=== PATIENT | female | born 1950 | race Caucasian/White ===

== ENCOUNTER 2016-10-28 21:27 | Inpatient (IN) | payer MEDICARE, OTHER ==
--- NOTE | 2016-10-28 21:54 | ED Physician Chart ---
Chief Complaint/HPI - Patient Information Date Seen:: 10/28/16 Time Seen:: 21:45 Chief Complaint:: Aggressive behavior for at least 4 months. History of Present Illness:: Brought in by caregiver Ms. Thu Baez because pt has been noticed to have increased aggressive behavior for about 4 months. Pt has been evaluated by social work nurse in the past and is in the process to be considered for placement in a care home. Pt has been followed by PCP Dr. Dodie Crenshaw. Pt currently feels comfortable without any bodily pain. Pt has been noticed at times to throw things around. Pt at times urinates and defecates anywhere in the home. She also uses foul language and becomes hostile regularly. Pt now appears to be calm and comfortable. Allergies:: NKA Vitals:: see Nurse Note. Historian:: Patient, Other (caregiver Ms. Thu Baez) Family MD/PCP:: Dr. Dodie Crenshaw. LMP:: Postmenopausal. Review:: Nurse's Note Reviewed Review of Systems - Review of Systems General/Constitutional: Other (Pt does not cooperate for ROS.) Past Medical History - Past Medical History Past Medical History: Dementia Family History: Other (Pt does not cooperate to provide info on FHx.) Social History: Non Smoker, No Alcohol, No Drug Use, Single, Other (lives with caregiver Ms. Baez.) Employment:: Retired. Surgical History: other (Bilateral knee surgeries about 2 years.) Psychiatricy History: Depression, Dementia Medication: Reviewed Family Medical History - Family Member Mother History Unknown: Yes Physical Exam - Physical Examination General/Constitutional: Awake, Alert, No distress, Non-toxic appearing, Ambulatory Other Gen/Cons comments:: WD slightly cachectic female in NAD. Pt speaks clearly and ambulates without difficulty. Pt is not fully cooperative. Head: Atraumatic Eyes: Lids, conjuctiva normal, PERRL, EOMI Skin: No rash, No lymphadenopathy ENMT: Oropharynx nl Other ENMT comments:: mucous membrane is slightly dry. Neck: Nontender, Full ROM w/o pain, No JVD, No nuchal rigidity, No mass, No stridor Respiratory: Nl effort/Exclusion, Clear to Auscultation, No Wheeze/Rhonchi/Rales Cardio Vascular: RRR, No murmur, gallop, rubs GI: No tenderness/rebounding/guarding, No organomegaly, Normal BS's, Nondistended, No mass/bruits Other GI comments:: Abdomen is soft. : No CVA tenderness Extremities: No edema Other Neuro/Psych comments:: Alert and knows her name. Spontaneous movements noticed in all 4 extremities. Pt does not cooperate for full neurological exam. Labs/Radiology/EKG Results - Lab Results Results: Laboratory Tests 10/28/16 10/28/16 10/28/16 22:00 22:00 22:00 WBC 6.0 RBC 4.04 Hgb 13.0 Hct 38.4 MCV 95.0 MCH 32.3 H MCHC Differential 33.9 RDW 11.9 Plt Count 190 MPV 11.1 Neutrophils % 54.8 Lymphocytes % 36.4 Monocytes % 7.1 Eosinophils % 1.2 Basophils % 0.5 Sodium 137 Potassium 3.8 Chloride 102 Carbon Dioxide 31.3 H Anion Gap 7.5 BUN 33 H Creatinine 0.8 Est GFR ( Amer) > 60.0 Est GFR (Non-Af Amer) > 60.0 BUN/Creatinine Ratio 41.3 Glucose 84 Calcium 9.6 Total Bilirubin 0.5 AST 32 ALT 37 Alkaline Phosphatase 48 Total Protein 6.4 Albumin 3.7 Globulin 2.7 Albumin/Globulin Ratio 1.4 Urine Source Urine Color Urine Clarity Urine pH Ur Specific [place] Urine Protein Urine Glucose (UA) Urine Ketones Urine Blood Urine Nitrate Urine Bilirubin Urine Urobilinogen Ur Leukocyte Esterase Urine RBC Urine WBC Ur Epithelial Cells Urine Bacteria Valproic Acid 82.4 10/28/16 22:15 WBC RBC Hgb Hct MCV MCH MCHC Differential RDW Plt Count MPV Neutrophils % Lymphocytes % Monocytes % Eosinophils % Basophils % Sodium Potassium Chloride Carbon Dioxide Anion Gap BUN Creatinine Est GFR ( Amer) Est GFR (Non-Af Amer) BUN/Creatinine Ratio Glucose Calcium Total Bilirubin AST ALT Alkaline Phosphatase Total Protein Albumin Globulin Albumin/Globulin Ratio Urine Source CLEAN C Urine Color YELLOW Urine Clarity CLEAR Urine pH 5.5 Ur Specific [place] 1.025 Urine Protein NEGATIVE Urine Glucose (UA) NEGATIVE Urine Ketones 15 H Urine Blood NEGATIVE Urine Nitrate NEGATIVE Urine Bilirubin NEGATIVE Urine Urobilinogen 1.0 Ur Leukocyte Esterase NEGATIVE Urine RBC 0-2 Urine WBC 0-2 Ur Epithelial Cells FEW Urine Bacteria FEW Valproic Acid ED Septic Shock - . Is Septic Shock (SBP<90, OR Lactate>4 mmol\L) present?: No Reassessment (Disposition) - Reassessment Reassessment:: 2309 Pt remains stable. No new findings. Remaining lab results just became available. 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 Management plan has been discussed. Dr. Crenshaw is to be contacted. 2314 Case was discussed with Dr. Gayathri Crenshaw, who covers for Dr. Dodie Crenshaw, with pertinent H & P and lab findings reviewed. Pt is to be admitted to [facility] under his care. Reassessment Condition:: Improved - Diagnosis Diagnosis:: Dehydration. Dementia with aggressive behavior. - Patient Disposition Admitted to:: Med/Surg Admitting Medical Physician:: Teofilo Crenshaw Time:: 23:20 Condition at Disposition:: Stable, Improved ED Discharge Plan - Patient Disposition Admit/Discharge/Transfer: Acute Care w/in this hosp
[2016-10-28 22:18] LABS: % BASOPHILS 0.5 % (0.0-2.0); % EOSINOPHILS 1.2 % (0.0-5.0); % LYMPHOCYTES 36.4 % (20.0-50.0); % MONOCYTES 7.1 % (2.0-10.0); % NEUTROPHILS 54.8 % (40.0-80.0); HEMATOCRIT 38.4 % (35.0-45.0); MEAN CORPUSCULAR HEMOGLOBIN 32.3 pg (27.0-31.0); MEAN CORPUSCULAR HGB CONC 33.9 pg (28.0-36.0); MEAN PLATELET VOLUME 11.1 fl; NEUTROPHILE ABSOLUTE 3.3 Th/cmm (1.8-8.0); PLATELET COUNT 190 Th/cmm (150-400); RED BLOOD COUNT 4.04 Mil/cmm (3.80-5.20); RED CELL DISTRIBUTION WIDTH 11.9 % (11.5-20.0)
[2016-10-28 22:29] LABS: ALB/GLOB RATIO 1.4 (1.0-1.8); ALKALINE PHOSPHATASE 48 U/L (34-104); ANION GAP 7.5 (7.0-16.0); BILIRUBIN,TOTAL 0.5 mg/dL (0.3-1.0); BUN - UREA NITROGEN 33 mg/dL (7-25); BUN/CREATININE RATIO 41.3; CALCIUM SERUM 9.6 mg/dL (8.6-10.3); CARBON DIOXIDE 31.3 mEq/L (21.0-31.0); CHLORIDE 102 mEq/L (98-107); CREATININE - SERUM 0.8 mg/dL (0.6-1.2); GLUCOSE 84 mg/dL (70-105); POTASSIUM SERUM 3.8 mEq/L (3.5-5.1); SGOT 32 U/L (13-39); SGPT/ALT 37 U/L (7-52); SODIUM SERUM 137 mEq/L (136-145)
[2016-10-28] MEDS ORDERED: D5-0.45NS 1,000 ML IV ONE (22:55)
[2016-10-28 23:03] LABS: URINE BILIRUBIN NEGATIVE (NEGATIVE); URINE BLOOD NEGATIVE (NEGATIVE); URINE COLOR YELLOW; URINE GLUCOSE (UA) NEGATIVE (NEGATIVE); URINE KETONE 15 mg/dL (NEGATIVE); URINE PH 5.5
[2016-10-28 23:04] LABS: URINE BACTERIA FEW /hpf (NONE SEEN); URINE EPITHELIAL CELLS FEW /lpf (FEW); URINE PROTEIN NEGATIVE (NEGATIVE); URINE RBC 0-2 /hpf (0-5); URINE WBC 0-2 /hpf (0-5)
--- NOTE | 2016-10-29 03:05 | Admit Criteria Form ---
Admit Criteria Forms - Admit Criteria Diagnosis: DEHYDRATION Clinical Indications for Admission to Inpatient Care (Place 'X' for any and all applicable criteria): Admission is indicated for ANY ONE of the following (1)(2)(3)(4)(5): [X ]I. Inpatient admission required rather than observation care (see Dehydration: Observation Care guideline as appropriate) because of ANY ONE of the following: [ ]a) Vomiting that is severe or persistent [ ]b) Severe electrolyte abnormalities requiring inpatient care [ ]c) Hemodynamic instability [ ]d) IV fluid to replace significant ongoing losses (greater than 3 L/m2 per day (10) (11) [ ]e) Parenteral nutrition regimen that must be implemented on inpatient basis [ X]f) Other condition,treatment or monitoring requiring inpatient admission [ ]II. Serious cause for dehydration requiring acute hospitalization (eg, bowel obstruction, increased intracranial pressure, infectious cause) Extended stay beyond goal length of stay may be needed for(1)(3 )(4)(17): [ ]a) Chronic severe dehydration [ ]b) Persistent vital sign changes, severe electrolyte imbalance, or diagnosed cause of dehydration that requires continued hospitalization (eg, bowel obstruction, increased intracranial pressure) [ ]c) Older patients (65 years or older) [ ]d) Severe comorbid illness (eg, renal failure, heart failure, poorly controlled diabetes) The original [employer] content created by [employer] has been revised. The portions of the content which have been revised are identified through the use of italic text or in bold, and [facility] has neither reviewed nor approved the modified material. All other unmodified content is copyright [facility]. Please see references footnoted in the original [facility] edition 2016 Admit Criteria Met?: Yes
[2016-10-29] MEDS ORDERED: VTE Chemical Prophylaxis Screen/Admission MC PRN (08:24)
[2016-10-29] MEDS ORDERED: D5-0.45NS 1,000 ML IV SCH (11:35)
[2016-10-29 12:01] LABS: % BASOPHILS 1.2 % (0.0-2.0); % EOSINOPHILS 0.7 % (0.0-5.0); % LYMPHOCYTES 22.8 % (20.0-50.0); % MONOCYTES 6.9 % (2.0-10.0); % NEUTROPHILS 68.4 % (40.0-80.0); HEMATOCRIT 40.9 % (35.0-45.0); HEMOGLOBIN 13.9 gm/dL (11.7-16.1); MEAN CELL VOLUME 94.9 fl (81-100); MEAN CORPUSCULAR HEMOGLOBIN 32.2 pg (27.0-31.0); MEAN CORPUSCULAR HGB CONC 33.9 pg (28.0-36.0); MEAN PLATELET VOLUME 10.7 fl; NEUTROPHILE ABSOLUTE 4.9 Th/cmm (1.8-8.0); PLATELET COUNT 181 Th/cmm (150-400); RED BLOOD COUNT 4.31 Mil/cmm (3.80-5.20); RED CELL DISTRIBUTION WIDTH 11.9 % (11.5-20.0); WHITE BLOOD COUNT 7.1 Th/cmm (4.8-10.8)
[2016-10-29 12:35] LABS: ALB/GLOB RATIO 1.3 (1.0-1.8); ALKALINE PHOSPHATASE 51 U/L (34-104); BILIRUBIN,TOTAL 0.4 mg/dL (0.3-1.0); BUN - UREA NITROGEN 22 mg/dL (7-25); BUN/CREATININE RATIO 31.4; CALCIUM SERUM 9.5 mg/dL (8.6-10.3); CARBON DIOXIDE 35.9 mEq/L (21.0-31.0); CHLORIDE 99 mEq/L (98-107); CREATININE - SERUM 0.7 mg/dL (0.6-1.2); GLUCOSE 62 mg/dL (70-105); POTASSIUM SERUM 3.9 mEq/L (3.5-5.1); SGOT 34 U/L (13-39); SGPT/ALT 37 U/L (7-52); SODIUM SERUM 135 mEq/L (136-145)
--- NOTE | 2016-10-29 14:21 | History & Physical ---
ADMIT DATE: 10/28/2016 REASON FOR ADMISSION: Prerenal azotemia with dehydration in this patient with agitation and aggression from the mood disorder, psychosis and possible dementia. HISTORY OF PRESENTING ILLNESS: The patient is a 66-year-old female who lives in a board and care facility, past few months she is getting more aggressive and start throwing the stuff in the house around, defecate any place in house, urinate also different places in the home instead of going to the bathroom and become handful to control at board and care level setting, so brought to the Emergency Room. Workup there revealed dehydration with BUN 33, creatinine 0.8. The patient started on IV fluid and admitted at the present time. The patient denies any headache. No vision problem. No swallowing problem, able to tolerate the p.o. diet and fluid at present time. The patient denies any cough or sputum production. No fever or chill. No UTI symptomatology. No hematuria. No abdominal pain, nausea, vomiting, diarrhea. No leg swelling or joint swelling. The patient had a multitude of laceration noted on the right side of the dorsum of the hand and right arm area. The patient also had a senile purpura over the lower extremities and on her forearms bilaterally. The patient denies any other symptom at the present time. PAST MEDICAL HISTORY: Significant for DJD of the knee, status post surgery for it and history of hypertension. MEDICATIONS: Currently receiving Depakote 1 g once a day extended release and Paxil 40 mg once a day, Seroquel 25 at bedtime, and Geodon 20 mg at bedtime. ALLERGIES: None. SOCIAL HISTORY: No smoking, no alcohol, no substance abuse. FAMILY HISTORY: Noncontributory. REVIEW OF SYSTEMS: See the history of presenting illness. PHYSICAL EXAMINATION: VITAL SIGNS: Height 1.78 meter, weight 38.6 kg, temperature 96.8, afebrile, pulse 88, respiratory rate 17, blood pressure 149/82, saturation is 99% room air. HEENT: Significant for dentition, otherwise mucosa is moist. No oral candidiasis or petechia, no icterus, no pallor. NECK: Supple. No JVD, bruit, or lymphadenopathy. LUNGS: Clear. CARDIOVASCULAR: S1, S2 normal limit. ABDOMEN: Soft, nontender. No hepatosplenomegaly. Bowel sound is active in all quadrants. EXTREMITIES: Degenerative joint changes noted, but no swelling, no leg edema. Dorsalis pedis palpable. CENTRAL NERVOUS SYSTEM: Cranial nerves intact, nonfocal. MUSCULOSKELETAL: No clubbing, cyanosis, or synovitis. LABORATORY TESTS: WBC 7.1, hemoglobin 13.9, MCV 94, platelet count of 181,000, neutrophil 68. Sodium 137, potassium 3.8, chloride 102, bicarb 31, BUN 33, creatinine 0.8, glucose of 84 and calcium 9.6. Liver panel unremarkable. Albumin normal at 3.7. TSH normal at 0.55. Urinalysis: pH 5.5, specific gravity 1025 and ketones 1+, otherwise unremarkable. Valproic acid 82. ASSESSMENT AND PLAN: 1. Prerenal azotemia secondary to dehydration. The patient received IV fluid, but not able to keep up with to p.o. intake. We will discontinue IV fluid when transfer to [facility]. 2. Psychosis, worsening with mood disorder, chronic major depression. Further plan per Dr. Durand. We will send her to the [facility] for adjustment of the medication. The patient also need new placement. The case discussed with case management team to sent to the [facility] upon discharge from the [facility]. 3. prerenal Azotemia secondary to dehydration from recent diarrhea increase p.o. fluid and diet and go from there. 4. Hypertension on lisinopril 10 mg po q AM , hold toprol as bp low 5. Degenerative joint disease of the knee. post surgery, stable 6. Chronic major depression and mood disorder : per psychiatry dr. Durand. Continous current med see orders. 7. Full CPR status. 8. We will obtain also chest x-ray and RPR as the patient going to the [facility] and go from there. 9. weight loss: etio due to psych condition , no medical reason , continous work up. and monitor weight , boost supplements TID. JOB# [id number] [facility]
--- NOTE | 2016-10-29 15:04 | Diagnostic Imaging Report ---
CHEST X-RAY: 2 views INDICATION: Shortness of breath COMPARISON: None FINDINGS: Chronic lung changes are seen with no focal consolidation or effusions. Spinal scoliosis is noted. Heart size normal. Atherosclerosis is noted. Gas-filled loops of bowel and stomach are seen along the upper abdomen. An IVC filter is noted. Degenerative changes of the spine are noted. IMPRESSION: Chronic lung changes with no focal consolidation identified. Atherosclerotic vascular disease. Copious stool with gas and stone loops of bowel possibly due to ileus. Please correlate clinically. Consider acute abdominal series or CT, if warranted.
== END 2016-10-29 22:41 | DRG 641 ==
LOC: ER 21:27 → MSI 23:15
PROVIDERS: ADMIT Internal Medicine; ATTEND Internal Medicine
DX: E86.0 Dehydration (principal); R64 Cachexia; D69.2 Other nonthrombocytopenic purpura; F03.90 Unspecified dementia, unspecified severity, without behavioral disturbance, psychotic disturbance, mood disturbance, and anxiety; Z68.1 Body mass index [BMI] 19.9 or less, adult; F32.9 Major depressive disorder, single episode, unspecified; F29 Unspecified psychosis not due to a substance or known physiological condition; S61.411A Laceration without foreign body of right hand, initial encounter; S41.111A Laceration without foreign body of right upper arm, initial encounter; I10 Essential (primary) hypertension; Z96.653 Presence of artificial knee joint, bilateral; X58.XXXA Exposure to other specified factors, initial encounter; F39 Unspecified mood [affective] disorder; Y93.89 Activity, other specified; Y92.89 Other specified places as the place of occurrence of the external cause
CPT/HCPCS: 36415-UA; 71020-TC; 80053-TC; 80164-TC; 81001-TC; 84443-TC; 85025-TC; 86592-TC; Z7610

== ENCOUNTER 2016-10-29 22:42 | Inpatient (IN) | payer MEDICARE, OTHER ==
[2016-10-30] MEDS ORDERED: Maalox 30 mL Cup PO PRN (00:23)
[2016-10-30] MEDS ORDERED: Magnesium Hydroxide (MOM) 30 mL UDC PO PRN (00:23)
[2016-10-30 02:46] VITALS: BP 127/78
[2016-10-30] MEDS ORDERED: Fleet Enema 135 mL RC PRN (06:52)
[2016-10-30] MEDS: Multivitamin Tab PO SCH (09:19)
[2016-10-30] MEDS: POLYETHYLENE GLYCOL 3350 17 GM PACK PO SCH (09:19)
--- NOTE | 2016-10-30 11:52 | Diagnostic Imaging Report ---
CT abdomen and pelvis without intravenous contrast Indication: Weight loss Comparison: None, Technique: Axial images were obtained from the lung bases to the bilateral proximal femurs without IV contrast. Coronal reconstructions were made. total DLP: 260, CTDI5.7 FINDINGS: There is a 4 mm nodule of the right lung base. Hyperinflated lungs are noted. Diffuse cachexia is noted. Assessment of the solid organs is limited due to lack of IV contrast. There are 2 low-density lesions within the liver the largest within the posterior right lobe measuring 1.4 cm. Findings probably represent cysts. Additional subcentimeter low-density lesions are noted to small to characterize. Elongated gallbladder is noted. No radiopaque gallstones identified.. No focal splenic lesions. Assessment of the pancreas is limited due to body habitus and bowel gas. Punctate calcification is seen along the tail of the pancreas possibly due to old inflammatory process. No focal adrenal lesions. No evidence of hydronephrosis. Generalize gas-filled loops of bowel are noted with copious stool. No evidence of bowel obstruction. No definite evidence of mesenteric lymphadenopathy. Trace free fluid is seen within the pelvis. No free air. An IVC filter is seen at the L2/L3 level. There is focal heavy atherosclerosis along the origin of the celiac artery. Degenerative changes of the spine and pelvis are noted. IMPRESSION: Diffuse cachexia. Please correlate with clinical history. Generalized gaseous distended loops of bowel without evidence of obstruction. Findings may represent ileus. No evidence of lymphadenopathy. Low-density hepatic lesions the largest measuring 1.4 cm. Findings may be shipping services sales representative of cysts, however, short-term follow-up ultrasound is recommended for further characterization. IVC filter noted. Focal heavy atherosclerotic vascular disease along the origin of the celiac artery. 4 mm nodule in the right lung base. Findings nonspecific and may be postinfectious or postinflammatory. Correlation with old exams would be helpful. Alternatively, short-term follow-up CT chest in 6 months is suggested.
[2016-10-31 08:22] LABS: % BASOPHILS 0.4 % (0.0-2.0); % EOSINOPHILS 2.7 % (0.0-5.0); % LYMPHOCYTES 39.7 % (20.0-50.0); % MONOCYTES 8.3 % (2.0-10.0); % NEUTROPHILS 48.9 % (40.0-80.0); HEMATOCRIT 39.2 % (35.0-45.0); MEAN CORPUSCULAR HEMOGLOBIN 31.9 pg (27.0-31.0); MEAN CORPUSCULAR HGB CONC 33.2 pg (28.0-36.0); MEAN PLATELET VOLUME 10.8 fl; NEUTROPHILE ABSOLUTE 2.8 Th/cmm (1.8-8.0); PLATELET COUNT 164 Th/cmm (150-400); RED BLOOD COUNT 4.09 Mil/cmm (3.80-5.20); RED CELL DISTRIBUTION WIDTH 12.1 % (11.5-20.0); WHITE BLOOD COUNT 5.4 Th/cmm (4.8-10.8)
[2016-10-31 08:53] LABS: ALB/GLOB RATIO 1.3 (1.0-1.8); ALKALINE PHOSPHATASE 54 U/L (34-104); AMYLASE SERUM 89 U/L (29-103); ANION GAP 5.1 (7.0-16.0); BILIRUBIN,TOTAL 0.3 mg/dL (0.3-1.0); BUN - UREA NITROGEN 23 mg/dL (7-25); BUN/CREATININE RATIO 28.8; CALCIUM SERUM 9.5 mg/dL (8.6-10.3); CARBON DIOXIDE 35.5 mEq/L (21.0-31.0); CHLORIDE 104 mEq/L (98-107); CREATININE - SERUM 0.8 mg/dL (0.6-1.2); GLUCOSE 80 mg/dL (70-105); LIPASE 74 U/L (11-82); POTASSIUM SERUM 4.6 mEq/L (3.5-5.1); SGOT 49 U/L (13-39); SGPT/ALT 51 U/L (7-52); SODIUM SERUM 140 mEq/L (136-145)
[2016-10-31] MEDS: Multivitamin Tab PO SCH (10:53)
[2016-10-31] MEDS: POLYETHYLENE GLYCOL 3350 17 GM PACK PO SCH (10:54)
--- NOTE | 2016-10-31 11:07 | Diagnostic Imaging Report ---
Ultrasound abdomen HISTORY: Abdominal pain COMPARISON: CT abdomen and pelvis on 10/30/2016 Technique: Sonography of the abdomen was performed in multiple planes. FINDINGS: Exam is limited due to bowel gas. The liver demonstrates normal echogenicity with no evidence of focal lesions. The liver measures 16 cm. The gallbladder was not well-visualized. Note that a stone filled gallbladder cannot be excluded. No evidence of common bile duct dilatation. The common bile duct measures 3 mm. Evaluation of the pancreas is grossly unremarkable. The right kidney measures 9 cm. No evidence of focal lesions or hydronephrosis. The left kidney measures 7.5 cm No evidence of focal lesions or hydronephrosis. The spleen 10.2 cm. IMPRESSION: The gallbladder was not well visualized. Note that a stone filled gallbladder cannot be excluded. Recommend clinical correlation and possible additional views after appropriate fasting. Note the gallbladder was identified on recent CT examination. No evidence of hydronephrosis.
[2016-10-31] MEDS: Lactulose 10 Gm/15 mL 30mL UDC PO SCH (17:12)
[2016-11-01] MEDS: Lactulose 10 Gm/15 mL 30mL UDC PO SCH ×2 (08:55→17:15)
[2016-11-01] MEDS: POLYETHYLENE GLYCOL 3350 17 GM PACK PO SCH (08:58)
[2016-11-01] MEDS: Multivitamin Tab PO SCH (08:58)
[2016-11-01 13:58] LABS: ALB/GLOB RATIO 1.4 (1.0-1.8); ALKALINE PHOSPHATASE 68 U/L (34-104); ANION GAP 5.1 (7.0-16.0); BILIRUBIN,TOTAL 0.3 mg/dL (0.3-1.0); BUN - UREA NITROGEN 26 mg/dL (7-25); BUN/CREATININE RATIO 32.5; CALCIUM SERUM 9.3 mg/dL (8.6-10.3); CHLORIDE 104 mEq/L (98-107); CREATININE - SERUM 0.8 mg/dL (0.6-1.2); GLUCOSE 85 mg/dL (70-105); POTASSIUM SERUM 4.1 mEq/L (3.5-5.1); SGOT 50 U/L (13-39); SGPT/ALT 53 U/L (7-52); SODIUM SERUM 138 mEq/L (136-145)
[2016-11-02] MEDS: Lactulose 10 Gm/15 mL 30mL UDC PO SCH ×2 (08:59→16:41)
[2016-11-02] MEDS: Multivitamin Tab PO SCH (09:03)
[2016-11-02] MEDS: POLYETHYLENE GLYCOL 3350 17 GM PACK PO SCH (09:04)
--- NOTE | 2016-11-02 09:42 | Diagnostic Imaging Report ---
Portable chest x-ray History: Cough, question tuberculosis Allowing for portable technique the heart size is normal. No focal pulmonary parenchymal processes. No hilar or mediastinal abnormalities. An inferior vena cava filter is noted in the right upper mid abdomen. Impression: No acute abnormalities. No radiographic evidence of tuberculosis.
[2016-11-02 15:15] LABS: HEP B CORE IGM Negative (Negative); HEP C ANTIBODY <0.1 s/co ratio (0.0-0.9)
[2016-11-03] MEDS: POLYETHYLENE GLYCOL 3350 17 GM PACK PO SCH (08:33)
[2016-11-03] MEDS: Lactulose 10 Gm/15 mL 30mL UDC PO SCH ×2 (08:33→16:36)
[2016-11-03] MEDS: Multivitamin Tab PO SCH (08:36)
--- NOTE | 2016-11-03 11:33 | Geri Psych Progress Note ---
[facility] Psych Progress Note - Intro Patient was seen: patient is seen on 11/03/16 - Assessment Assessment: Still depressed. - Vitals, I&O Vitals: Vital Signs - 24 hr 11/02/16 11/03/16 11/03/16 20:26 06:43 08:34 Temp 98 F 97.6 F HR 100 95 95 RR 18 18 BP 100/60 135/88 135/88 O2 Sat % 96 99 I&O: Intake & Output 11/01/16 11/02/16 11/03/16 11/04/16 06:59 06:59 06:59 06:59 Intake Total 1000 1120 Balance 1000 1120 Weight (lbs) 41.368 kg - ROS HEENT: Report: Other Musculoskeletal: Report: Other Neurological: Report: Weakness Psychological ROS: Report: Anxiety, Concentration difficulty, Depression, Mood swings, Sleep Disturbances Skin: Report: Other - Objective Psych General Appearance: Report: No acute distress Psych Behavior: Report: Alert, Cooperative Psych Speech: Report: Normal in Rate and amount Psych Mood: Report: Anxious, Depressed Psych Affect: Report: Anxious, Depressed Psych Thought Process: Report: Ruminative Psych Cognition: Report: Confused Psych Insight: Report: Impaired Psych Judgement: Report: Impaired - Plan Plan: Continue current meds and follow up. - Review of Relevant Data Review of Relevant Data: I have reviewed the following items and time carter (where applicable) has been applied. Psych Data Reviewed: Vitals - Diagnosis Diagnosis: Psychosis unspecified. - Medications Current Medications: Current Medications Acetaminophen (Tylenol) 650 mg PO Q4HR PRN PRN Reason: Mild Pain / Temp above 100 Stop: 12/29/16 00:22 Last Admin: 10/31/16 20:30 Dose: 650 mg Al Hydrox/Mg Hydrox/Simethicone (Maalox) 30 ml PO Q4HR PRN PRN Reason: GI DISTRESS Stop: 12/29/16 00:22 Divalproex Sodium (Depakote Er) 500 mg PO BID PAM PRN Reason: Protocol Stop: 12/30/16 16:59 Last Admin: 11/03/16 08:34 Dose: 500 mg Docusate Sodium (Colace) 250 mg PO BID PAM Stop: 12/29/16 08:59 Last Admin: 11/03/16 08:34 Dose: 250 mg Lactulose (Cephulac) 30 gm PO BID PAM Stop: 12/30/16 16:59 Last Admin: 11/03/16 08:33 Dose: 30 gm Lisinopril (Zestril) 2.5 mg PO DAILY PAM Stop: 12/31/16 11:43 Last Admin: 11/03/16 08:34 Dose: 2.5 mg Lorazepam (Ativan) 0.5 mg PO Q4HR PRN; Protocol PRN Reason: Anxiety Stop: 11/29/16 00:22 Magnesium Hydroxide (Milk Of Magnesia) 30 ml PO HS PRN PRN Reason: Constipation Metoclopramide HCl (Reglan) 5 mg PO DAILY PAM Stop: 12/30/16 11:29 Last Admin: 11/03/16 08:36 Dose: 5 mg Multivitamins/Vitamin C (Theragran) 1 tab PO DAILY PAM Stop: 12/29/16 08:59 Last Admin: 11/03/16 08:36 Dose: 1 tab Nystatin/Triamcinolone Acetonide (Mycolog Ii Cream) 1 appl TP DAILY PAM Stop: 11/12/16 09:01 Last Admin: 11/02/16 09:04 Dose: 1 appl Paroxetine HCl (Paxil) 40 mg PO DAILY PAM PRN Reason: Protocol Stop: 12/29/16 08:59 Last Admin: 11/03/16 08:34 Dose: 40 mg Polyethylene Glycol (Miralax) 17 gm PO DAILY PAM Stop: 12/29/16 08:59 Last Admin: 11/03/16 08:33 Dose: 17 gm Quetiapine Fumarate (Seroquel) 25 mg PO HS PAM PRN Reason: Protocol Stop: 12/29/16 20:59 Last Admin: 11/02/16 20:55 Dose: 25 mg Sodium Phosphate (Fleet Enema) 135 ml RC DAILY PRN PRN Reason: Constipation Stop: 12/29/16 06:51 Zolpidem Tartrate (Ambien) 5 mg PO HS PRN PRN Reason: Insomnia Stop: 12/29/16 00:22
[2016-11-04] MEDS: POLYETHYLENE GLYCOL 3350 17 GM PACK PO SCH (09:10)
[2016-11-04] MEDS: Lactulose 10 Gm/15 mL 30mL UDC PO SCH ×2 (09:10→16:18)
[2016-11-04] MEDS: Multivitamin Tab PO SCH (09:11)
--- NOTE | 2016-11-04 13:48 | Geri Psych Progress Note ---
[facility] Psych Progress Note - Intro Patient was seen: 11/04/16 - Assessment Assessment: Still depressed. - Vitals, I&O Vitals: Vital Signs - 24 hr 11/03/16 11/04/16 14:03 06:48 Temp 96.7 F 97.0 F HR 109 100 RR 19 18 BP 94/63 141/89 O2 Sat % 99 99 I&O: Intake & Output 11/02/16 11/03/16 11/04/16 11/05/16 06:59 06:59 06:59 06:59 Intake Total 1120 1920 Balance 1120 1920 Weight (lbs) 41.368 kg - ROS Neurological: Report: Other (None.) Psychological ROS: Report: Anxiety, Depression - Objective Psych General Appearance: Report: No acute distress Psych Behavior: Report: Alert, Calm Psych Speech: Report: Normal in Rate and amount Psych Mood: Report: Depressed Psych Affect: Report: Anxious Psych Thought Process: Report: Circumstantial Psych Cognition: Report: Confused, Short term memory impairment Psych Insight: Report: Impaired Psych Judgement: Report: Fair - Plan Plan: Continue current medications and follow up with supportive tx. - Review of Relevant Data Review of Relevant Data: I have reviewed the following items and time carter (where applicable) has been applied. Psych Data Reviewed: Meds - Medications Current Medications: Current Medications Acetaminophen (Tylenol) 650 mg PO Q4HR PRN PRN Reason: Mild Pain / Temp above 100 Stop: 12/29/16 00:22 Last Admin: 10/31/16 20:30 Dose: 650 mg Al Hydrox/Mg Hydrox/Simethicone (Maalox) 30 ml PO Q4HR PRN PRN Reason: GI DISTRESS Stop: 12/29/16 00:22 Divalproex Sodium (Depakote Er) 500 mg PO BID PAM PRN Reason: Protocol Stop: 12/30/16 16:59 Last Admin: 11/04/16 09:12 Dose: 500 mg Docusate Sodium (Colace) 250 mg PO BID [facility] Stop: 12/29/16 08:59 Last Admin: 11/04/16 09:11 Dose: 250 mg Lactulose (Cephulac) 30 gm PO BID [facility] Stop: 12/30/16 16:59 Last Admin: 11/04/16 09:10 Dose: 30 gm Lisinopril (Zestril) 10 mg PO DAILY PAM Stop: 01/02/17 14:01 Last Admin: 11/04/16 09:13 Dose: Not Given Lorazepam (Ativan) 0.5 mg PO Q4HR PRN; Protocol PRN Reason: Anxiety Stop: 11/29/16 00:22 Magnesium Hydroxide (Milk Of Magnesia) 30 ml PO HS PRN PRN Reason: Constipation Metoclopramide HCl (Reglan) 5 mg PO DAILY PAM Stop: 12/30/16 11:29 Last Admin: 11/04/16 09:11 Dose: 5 mg Multivitamins/Vitamin C (Theragran) 1 tab PO DAILY PAM Stop: 12/29/16 08:59 Last Admin: 11/04/16 09:11 Dose: 1 tab Nystatin/Triamcinolone Acetonide (Mycolog Ii Cream) 1 appl TP DAILY PAM Stop: 11/12/16 09:01 Last Admin: 11/04/16 09:13 Dose: Not Given Paroxetine HCl (Paxil) 40 mg PO DAILY PAM PRN Reason: Protocol Stop: 12/29/16 08:59 Last Admin: 11/04/16 09:11 Dose: 40 mg Polyethylene Glycol (Miralax) 17 gm PO DAILY PAM Stop: 12/29/16 08:59 Last Admin: 11/04/16 09:10 Dose: 17 gm Quetiapine Fumarate (Seroquel) 25 mg PO HS PAM PRN Reason: Protocol Stop: 12/29/16 20:59 Last Admin: 11/03/16 21:20 Dose: 25 mg Sodium Phosphate (Fleet Enema) 135 ml RC DAILY PRN PRN Reason: Constipation Stop: 12/29/16 06:51 Zolpidem Tartrate (Ambien) 5 mg PO HS PRN PRN Reason: Insomnia Stop: 12/29/16 00:22
[2016-11-05] MEDS: Lactulose 10 Gm/15 mL 30mL UDC PO SCH ×2 (08:36→17:36)
[2016-11-05] MEDS: POLYETHYLENE GLYCOL 3350 17 GM PACK PO SCH (08:36)
[2016-11-05] MEDS: Multivitamin Tab PO SCH (08:37)
--- NOTE | 2016-11-05 09:58 | Admit Criteria Form ---
Admit Criteria Forms - Admit Criteria Diagnosis: PSYCHIATRIC DISORDERS (Place 'X' for any and all applicable criteria): Ongoing inpatient care may be needed for 1 or more of the following(1)(2)(3)(4)( 6)(7)(8): [ ]I. Danger to self or others not manageable at lower level of care. [ ]II. Grave disability (eg, inability to perform self care necessary at lower level of care) [ ]III. Agitation or inappropriate behavior interfering with care for primary condition (eg, attempting to discontinue lines or drains prematurely, unable to cooperate with respiratory care) [X]IV. Severe disability or disorder indicated by ALL of the following: [X]a) Severe behavioral health disorder-related symptoms or condition indicated by 1 or more of the following: [ ]i) Severe problem with cognition, memory, judgment, or impulse control [X]ii) Severe clinical manifestations (eg, hallucinations, delusions, other acute psychotic symptoms, сергей, extreme agitation or anxiety) [X]b) Patient management at lower level of care is not feasible until acute intervention or modification is initiated. Extended stay beyond goal length of stay for the primary condition may be needed until ALLof the following are present(1)(2)(3)(4)(7)07)(23): [ ]a) Danger to self or others is absent or manageable at lower level of care [ ]b) Behavior crisis management, including physical or chemical restraints, is required and is not available at a lower level of care. [ ]c) Behavioral symptoms (e.g., agitation, somnolence, inappropriate behavior) are present, and are not manageable at a lower level of care. [ ]d) Patient cannot understand follow-up treatment and crisis plan. [ ]e) Provider and supports are sufficiently available at lower level of care. [ ]f) Patient can participate (e.g., verify absence of plan for harm) and is in needed of monitoring. The original [facility] content created by [facility] has been revised. The portions of the content which have been revised are identified through the use of italic text or in bold, and [facility] has neither reviewed nor approved the modified material. All other unmodified content is copyright [facility]. Please see references footnoted in the original [facility] edition 2017
--- NOTE | 2016-11-05 10:04 | Geri Psych Progress Note ---
[facility] Psych Progress Note - Intro Patient was seen: 11/05/16. - Assessment Assessment: Depressed. - Vitals, I&O Vitals: Vital Signs - 24 hr 11/04/16 11/04/16 11/04/16 15:46 16:00 20:25 Temp 96.8 F 96.8 F 97.8 F HR 95 95 86 RR 18 18 18 BP 99/65 99/65 100/62 O2 Sat % 95 95 96 11/05/16 11/05/16 06:21 08:36 Temp 98.3 F HR 100 92 RR 19 BP 140/96 142/88 O2 Sat % 98 I&O: Intake & Output 11/03/16 11/04/16 11/05/16 11/06/16 06:59 06:59 06:59 06:59 Intake Total 1120 1920 240 Balance 1120 1920 240 - ROS Neurological: Report: Other (None.) Psychological ROS: Report: Anxiety, Depression, Memory difficulties - Objective Psych General Appearance: Report: No acute distress, Disheveled Psych Behavior: Report: Alert, Cooperative Psych Speech: Report: Normal in Rate and amount Psych Mood: Report: Anxious Psych Affect: Report: Approp. content of speech, Anxious, Depressed Psych Thought Process: Report: Circumstantial Psych Cognition: Report: Confused, Short term memory impairment Psych Insight: Report: Impaired Psych Judgement: Report: Impaired - Plan Plan: To increase the dose of Seroquel and follow up with supportive therapy. - Review of Relevant Data Review of Relevant Data: I have reviewed the following items and time carter (where applicable) has been applied. Psych Data Reviewed: Meds - Medications Current Medications: Current Medications Acetaminophen (Tylenol) 650 mg PO Q4HR PRN PRN Reason: Mild Pain / Temp above 100 Stop: 12/29/16 00:22 Last Admin: 10/31/16 20:30 Dose: 650 mg Al Hydrox/Mg Hydrox/Simethicone (Maalox) 30 ml PO Q4HR PRN PRN Reason: GI DISTRESS Stop: 12/29/16 00:22 Divalproex Sodium (Depakote Er) 500 mg PO BID PAM PRN Reason: Protocol Stop: 12/30/16 16:59 Last Admin: 11/05/16 08:36 Dose: 500 mg Docusate Sodium (Colace) 250 mg PO BID [facility] Stop: 12/29/16 08:59 Last Admin: 11/05/16 08:36 Dose: 250 mg Lactulose (Cephulac) 30 gm PO BID PAM Stop: 12/30/16 16:59 Last Admin: 11/05/16 08:36 Dose: 30 gm Lisinopril (Zestril) 10 mg PO DAILY PAM Stop: 01/02/17 14:01 Last Admin: 11/05/16 08:36 Dose: 10 mg Lorazepam (Ativan) 0.5 mg PO Q4HR PRN; Protocol PRN Reason: Anxiety Stop: 11/29/16 00:22 Magnesium Hydroxide (Milk Of Magnesia) 30 ml PO HS PRN PRN Reason: Constipation Metoclopramide HCl (Reglan) 5 mg PO DAILY PAM Stop: 12/30/16 11:29 Last Admin: 11/05/16 08:36 Dose: 5 mg Multivitamins/Vitamin C (Theragran) 1 tab PO DAILY PAM Stop: 12/29/16 08:59 Last Admin: 11/05/16 08:37 Dose: 1 tab Nystatin/Triamcinolone Acetonide (Mycolog Ii Cream) 1 appl TP DAILY PAM Stop: 11/12/16 09:01 Last Admin: 11/05/16 08:37 Dose: Not Given Paroxetine HCl (Paxil) 40 mg PO DAILY PAM PRN Reason: Protocol Stop: 12/29/16 08:59 Last Admin: 11/05/16 08:37 Dose: 40 mg Polyethylene Glycol (Miralax) 17 gm PO DAILY PAM Stop: 12/29/16 08:59 Last Admin: 11/05/16 08:36 Dose: 17 gm Sodium Phosphate (Fleet Enema) 135 ml RC DAILY PRN PRN Reason: Constipation Stop: 12/29/16 06:51 Zolpidem Tartrate (Ambien) 5 mg PO HS PRN PRN Reason: Insomnia Stop: 12/29/16 00:22
[2016-11-06] MEDS: Lactulose 10 Gm/15 mL 30mL UDC PO SCH ×2 (09:05→16:50)
[2016-11-06] MEDS: POLYETHYLENE GLYCOL 3350 17 GM PACK PO SCH (09:05)
[2016-11-06] MEDS: Multivitamin Tab PO SCH (09:06)
[2016-11-07] MEDS: Lactulose 10 Gm/15 mL 30mL UDC PO SCH ×2 (08:19→16:22)
[2016-11-07] MEDS: POLYETHYLENE GLYCOL 3350 17 GM PACK PO SCH (08:19)
[2016-11-07] MEDS: Multivitamin Tab PO SCH (08:21)
--- NOTE | 2016-11-07 17:32 | Geri Psych Progress Note ---
[facility] Psych Progress Note - Intro Date of Progress Note: 11/07/16 - Assessment Assessment: I am okay. Patient is stabilizing. - Vitals, I&O Vitals: Vital Signs - 24 hr 11/06/16 11/07/16 11/07/16 19:55 05:58 08:19 Temp 98.1 F 98.4 F HR 101 83 83 RR 20 20 BP 116/74 130/74 130/74 O2 Sat % 96 96 11/07/16 14:00 Temp 98.2 F HR 91 RR 20 BP 85/75 O2 Sat % 98 I&O: Intake & Output 11/05/16 11/06/16 11/07/16 11/08/16 06:59 06:59 06:59 06:59 Intake Total 240 1140 1330 Balance 240 1140 1330 Weight (lbs) 43.273 kg - ROS Neurological: Report: Memory Loss, Weakness - Objective Psych General Appearance: Report: No acute distress Psych Behavior: Report: Alert, Cooperative Psych Speech: Report: Normal in Rate and amount Psych Mood: Report: Anxious, Depressed Psych Affect: Report: Anxious, Depressed Psych Thought Process: Report: Circumstantial Psych Cognition: Report: Memory generally intact Psych Insight: Report: Fair Psych Judgement: Report: Fair - Plan Plan: To continue current meds and 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 - Medications Current Medications: Current Medications Acetaminophen (Tylenol) 650 mg PO Q4HR PRN PRN Reason: Mild Pain / Temp above 100 Stop: 12/29/16 00:22 Last Admin: 11/06/16 22:45 Dose: 650 mg Al Hydrox/Mg Hydrox/Simethicone (Maalox) 30 ml PO Q4HR PRN PRN Reason: GI DISTRESS Stop: 12/29/16 00:22 Divalproex Sodium (Depakote Er) 500 mg PO BID [facility] PRN Reason: Protocol Stop: 12/30/16 16:59 Last Admin: 11/07/16 16:21 Dose: 500 mg Docusate Sodium (Colace) 250 mg PO BID PAM Stop: 12/29/16 08:59 Last Admin: 11/07/16 16:21 Dose: 250 mg Lactulose (Cephulac) 30 gm PO BID [facility] Stop: 12/30/16 16:59 Last Admin: 11/07/16 16:22 Dose: 30 gm Lisinopril (Zestril) 10 mg PO DAILY PAM Stop: 01/07/17 08:59 Magnesium Hydroxide (Milk Of Magnesia) 30 ml PO HS PRN PRN Reason: Constipation Metoclopramide HCl (Reglan) 5 mg PO DAILY PAM Stop: 12/30/16 11:29 Last Admin: 11/07/16 08:21 Dose: 5 mg Multivitamins/Vitamin C (Theragran) 1 tab PO DAILY PAM Stop: 12/29/16 08:59 Last Admin: 11/07/16 08:21 Dose: 1 tab Nystatin/Triamcinolone Acetonide (Mycolog Ii Cream) 1 appl TP DAILY [facility] Stop: 11/12/16 09:01 Last Admin: 11/07/16 08:19 Dose: Not Given Paroxetine HCl (Paxil) 40 mg PO DAILY PAM PRN Reason: Protocol Stop: 12/29/16 08:59 Last Admin: 11/07/16 08:19 Dose: 40 mg Polyethylene Glycol (Miralax) 17 gm PO DAILY PAM Stop: 12/29/16 08:59 Last Admin: 11/07/16 08:19 Dose: 17 gm Quetiapine Fumarate (Seroquel) 25 mg PO BID PAM PRN Reason: Protocol Stop: 01/04/17 16:59 Last Admin: 11/07/16 16:21 Dose: 25 mg Sodium Phosphate (Fleet Enema) 135 ml RC DAILY PRN PRN Reason: Constipation Stop: 12/29/16 06:51
[2016-11-08] MEDS: Lactulose 10 Gm/15 mL 30mL UDC PO SCH (09:06)
[2016-11-08] MEDS: POLYETHYLENE GLYCOL 3350 17 GM PACK PO SCH (09:07)
[2016-11-08] MEDS: Multivitamin Tab PO SCH (09:08)
--- NOTE | 2016-11-08 09:49 | Geri Psych Progress Note ---
Judy Psych Progress Note - Intro Date of Progress Note: 11/08/16 - Assessment Assessment: Stabilizing her depression is resolving - Vitals, I&O Vitals: Vital Signs - 24 hr 11/07/16 11/07/16 11/08/16 14:00 20:00 06:23 Temp 98.2 F 98.3 F 98.3 F HR 91 92 78 RR 20 18 20 BP 85/75 99/60 110/70 O2 Sat % 98 97 97 11/08/16 09:08 Temp HR 103 RR BP 110/73 O2 Sat % I&O: Intake & Output 11/06/16 11/07/16 11/08/16 11/09/16 06:59 06:59 06:59 06:59 Intake Total 1140 1330 1320 Balance 1140 1330 1320 Weight (lbs) 43.273 kg - ROS Psychological ROS: Report: Anxiety - Objective Psych General Appearance: Report: No acute distress Psych Behavior: Report: Alert, Calm Psych Speech: Report: Normal in Rate and amount Psych Mood: Report: Anxious Psych Affect: Report: Approp. content of speech Psych Thought Process: Report: Goal Directed Psych Cognition: Report: Grossly Intact Psych Insight: Report: Fair Psych Judgement: Report: Fair - Plan Plan: To discharge patient today. - Review of Relevant Data Review of Relevant Data: I have reviewed the following items and time carter (where applicable) has been applied. Psych Data Reviewed: Meds - Medications Current Medications: Current Medications Acetaminophen (Tylenol) 650 mg PO Q4HR PRN PRN Reason: Mild Pain / Temp above 100 Stop: 12/29/16 00:22 Last Admin: 11/06/16 22:45 Dose: 650 mg Al Hydrox/Mg Hydrox/Simethicone (Maalox) 30 ml PO Q4HR PRN PRN Reason: GI DISTRESS Stop: 12/29/16 00:22 Divalproex Sodium (Depakote Er) 500 mg PO BID PAM PRN Reason: Protocol Stop: 12/30/16 16:59 Last Admin: 11/08/16 09:09 Dose: 500 mg Docusate Sodium (Colace) 250 mg PO BID [facility] Stop: 12/29/16 08:59 Last Admin: 11/08/16 09:08 Dose: 250 mg Lactulose (Cephulac) 30 gm PO BID [facility] Stop: 12/30/16 16:59 Last Admin: 11/08/16 09:06 Dose: 30 gm Lisinopril (Zestril) 10 mg PO DAILY PAM Stop: 01/07/17 08:59 Last Admin: 11/08/16 09:08 Dose: 10 mg Magnesium Hydroxide (Milk Of Magnesia) 30 ml PO HS PRN PRN Reason: Constipation Metoclopramide HCl (Reglan) 5 mg PO DAILY PAM Stop: 12/30/16 11:29 Last Admin: 11/08/16 09:07 Dose: 5 mg Multivitamins/Vitamin C (Theragran) 1 tab PO DAILY PAM Stop: 12/29/16 08:59 Last Admin: 11/08/16 09:08 Dose: 1 tab Nystatin/Triamcinolone Acetonide (Mycolog Ii Cream) 1 appl TP DAILY PAM Stop: 11/12/16 09:01 Last Admin: 11/08/16 09:08 Dose: 1 appl Paroxetine HCl (Paxil) 40 mg PO DAILY PAM PRN Reason: Protocol Stop: 12/29/16 08:59 Last Admin: 11/08/16 09:07 Dose: 40 mg Polyethylene Glycol (Miralax) 17 gm PO DAILY PAM Stop: 12/29/16 08:59 Last Admin: 11/08/16 09:07 Dose: 17 gm Quetiapine Fumarate (Seroquel) 25 mg PO BID PAM PRN Reason: Protocol Stop: 01/04/17 16:59 Last Admin: 11/08/16 09:08 Dose: 25 mg Sodium Phosphate (Fleet Enema) 135 ml RC DAILY PRN PRN Reason: Constipation Stop: 12/29/16 06:51
== END 2016-11-08 16:50 | DRG 881 ==
LOC: GERO 22:42
PROVIDERS: ADMIT Psychiatry & Neurology Psychiatry; ATTEND Psychiatry & Neurology Psychiatry
DX: F32.9 Major depressive disorder, single episode, unspecified (principal); K56.7 Ileus, unspecified; I10 Essential (primary) hypertension; F41.9 Anxiety disorder, unspecified; G47.8 Other sleep disorders; Z96.659 Presence of unspecified artificial knee joint; K56.41 Fecal impaction; F29 Unspecified psychosis not due to a substance or known physiological condition
CPT/HCPCS: 36415-UA; 71010-TC; 76700-TC; 80053-TC; 80074-90; 82140-TC; 82150-TC; 83690-TC; 85025-TC; 90899; G0410; Z7610